=== PATIENT | female | born 1990 | race Two or more races ===

== ENCOUNTER → 2024-03-29 | Outpatient (CLI) | payer BC, SELFPAY ==
--- NOTE | 2024-03-29 08:17 | XR_ITS ---
Examination: Bilateral hips, AP pelvis, 5 views Technique: AP, lateral views both hips, AP pelvis, 5 views Exam date and time: March 29, 2024 0839 hours INDICATIONS: Bilateral hip pain beginning 2 years ago. FINDINGS: No right or left hip fracture or dislocation No significant hip joint narrowing No avascular necrosis Stable sclerotic density right femoral head compared with September 15, 2021 IMPRESSION: No hip fracture or significant hip arthritic change
== END | disposition home or self-care (01) ==
PROVIDERS: PCP Nurse Practitioner Family; Referring Provider Nurse Practitioner Family; Visit Provider Nurse Practitioner Family
DX: M05.79 Rheumatoid arthritis with rheumatoid factor of multiple sites without organ or systems involvement (principal)
CPT/HCPCS: 73523